=== PATIENT | female | born 1990 | race Caucasian/White ===

== ENCOUNTER → 2017-01-05 | Outpatient (CLI) | payer BC ==
[~2017-01-05] MED LIST: DELTASONE10 MG PO; FLAGYL500 MG PO; LEVAQUIN 750 M750 MG PO; LEVONOR-ETH ES1 EACH PO; LOVENOX 4040 MG/0.4 SUB-Q; NORCO 5-325 TA1 EACH PO; OMEPRAZOLE40 MG PO; PEPCID20 MG PO; PERCOCET 10-321 EACH PO; PROBIOTIC & AC1 EACH PO; PROMETH-CODEIN 65 ML PO; THERAGRAN-M1 TAB PO; TYLENOL EXTRA500 MG PO; Z-PAK250 MG PO
== END | disposition disaster alternative care site (69) ==
LOC: GAMB 19:49
DX: K76.9 Liver disease, unspecified (principal); Z87.19 Personal history of other diseases of the digestive system; Z79.891 Long term (current) use of opiate analgesic; Z79.899 Other long term (current) drug therapy; Z88.0 Allergy status to penicillin
CPT/HCPCS: A0425; A0426; J2405